=== PATIENT | female | born 1965 | race Hispanic/Latino ===

== ENCOUNTER → 2022-05-18 | Day surgery (SDC) | payer OTHER ==
[~2022-05-18] MED LIST: BUPIVACAINE HCL 0.5% INJ 30 ML VIAL INJ ONE; DEXTROAMP-AMPHE30 MG PO; GLYCOPYRRO0.2 MG/1 M PO; HAIR, SKIN AND1 EAC1 PO; MAGNESIUM OXID400 MG PO; NEOSTIGMINE 1 MG/ML 10ML VIAL ONE; [UNRECOGNIZED DRUG - OTHER] PO
[2022-05-18 12:15] VITALS: BP 128/76
== END | disposition home or self-care (01) ==
LOC: OR 09:41
PROVIDERS: ATTEND Podiatrist Foot & Ankle Surgery
DX: S93.691A Other sprain of right foot, initial encounter (principal); M25.371 Other instability, right ankle; E66.9 Obesity, unspecified; K21.9 Gastro-esophageal reflux disease without esophagitis; F32.A Depression, unspecified; X58.XXXA Exposure to other specified factors, initial encounter; Z01.810 Encounter for preprocedural cardiovascular examination; Z79.899 Other long term (current) drug therapy
CPT/HCPCS: 27695; 93005; J0690; J2710; Q4150

== ENCOUNTER 2022-08-23 08:58 | Outpatient (RCR) | payer OTHER ==
[~2022-08-23 08:58] MED LIST changes: -BUPIVACAINE HCL 0.5% INJ 30 ML VIAL INJ ONE; -NEOSTIGMINE 1 MG/ML 10ML VIAL ONE
== END 2022-08-24 ==
LOC: PT 08:58
PROVIDERS: ATTEND Podiatrist Foot & Ankle Surgery
DX: M25.561 Pain in right knee (principal); M25.572 Pain in left ankle and joints of left foot; M25.571 Pain in right ankle and joints of right foot; M25.671 Stiffness of right ankle, not elsewhere classified; M62.81 Muscle weakness (generalized)

== ENCOUNTER 2022-09-17 09:00 | Outpatient (RCR) | payer OTHER | END 2022-09-21 | LOC: PT 09:00 | PROVIDERS: ATTEND Podiatrist Foot & Ankle Surgery | DX: M25.561 Pain in right knee (principal); M25.572 Pain in left ankle and joints of left foot; M25.571 Pain in right ankle and joints of right foot; M25.671 Stiffness of right ankle, not elsewhere classified; M62.81 Muscle weakness (generalized) ==